=== PATIENT | female | born 1945 | race Caucasian/White ===

== ENCOUNTER 2022-04-03 08:54 | Day surgery (SDC) | payer MEDICARE, MEDICAID, SELFPAY ==
[2022-03-23 15:10] VITALS: BMI 23.8
--- NOTE | 2022-03-30 08:21 | MHC.SHP ---
Pre-Procedural Eval Section A Date of Service: 03/30/22 The patient is an INPATIENT: No Changes since office visit: No Cold of Flu in the past 2 weeks, No New Medical Problems, No Changes in Medication and No Patient answered all questions The History & Physical has been completed within 30 days and I have reviewed it.: Yes Section B Chief Complaint: cataract Allergies: Allergies Allergy/AdvReac Type Severity Reaction Status Date / Time No Known Allergies Allergy Verified 03/23/22 15:10 Plan Diagnosis/Plan: Unchanged I have reviewed the history and physical and performed a pertinent physical examination on my patient. No changes have occurred unless specified.
--- NOTE | 2022-03-30 11:10 | P.CONAN_ITS ---
Documented by User: Elzbieta Mendiola NP 03/30/22 11:10 HPI - Anesthesia Eval Consult details Narrative: 76yo F for Right Cataract Extraction IOL Insertion PCP cleared No previous cataract on record [facility] Past Medical History Medical History (Updated 03/23/22 @ 15:13 by Ana Luisa Alston RN) Anxiety Aortic valvular disease Cataract Chronic renal insufficiency COPD (chronic obstructive pulmonary disease) Elevated cholesterol History of amputation of toe History of blood transfusion HTN (hypertension) Low back pain On beta wilber at home PVD (peripheral vascular disease) Seasonal allergies Surgical History Surgical History (Updated 03/23/22 @ 14:40 by Ana Luisa Alston RN) Hx of aortic valve replacement Hx of colonoscopy Social History Social History Are you a primary clinical manager home care to a significant other at home: No Do you presently have visiting nurse or other home services: No Patient Tobacco Use Status: Current everyday Tobacco user Tobacco use type: Cigarette Cigarettes Per Day: 15 Use of substances other than those prescribed or required for medical reasons: No Have you been hit, kicked, punched, or otherwise hurt by someone within the past year? If so, by whom?: No Are you DNR?: No Advance Directives: No Advance Directives Information Provided: Yes Advance Directives on File: No Nutrition Risks: Dental problems Meds Allergies Allergy/AdvReac Type Severity Reaction Status Date / Time No Known Allergies Allergy Verified 03/23/22 15:10 Home Medications Medication Instructions Recorded Confirmed Last Taken Type albuterol sulfate 90 mcg/actuation 1 puff INHALATION QID PRN 03/23/22 03/23/22 Unknown History aerosol inhaler amoxicillin 875 mg tablet 1 tab PO BID 03/23/22 03/23/22 Unknown History atorvastatin 40 mg tablet 1 tab PO DAILY 03/23/22 03/23/22 Unknown History calcium carbonate 600 mg-vitamin 1 tab PO BID 03/23/22 03/23/22 Unknown History D3 10 mcg (400 unit) tablet diclofenac sodium 1 % topical gel g TOPICAL QID 03/23/22 Unknown History doxycycline hyclate 100 mg tablet 1 tab PO BID 03/23/22 03/23/22 Unknown History fluticasone furoate 200 1 puff PO DAILY 03/23/22 03/23/22 Unknown History mcg-vilanterol 25 mcg/dose inhalation powder (Breo Ellipta) fluticasone propionate 50 1 spray INTRANASAL BID 03/23/22 03/23/22 Unknown History mcg/actuation nasal spray,suspension folic acid 1 mg tablet 1 tab PO DAILY 03/23/22 03/23/22 Unknown History furosemide 20 mg tablet 1 tab PO DAILY 03/23/22 03/23/22 Unknown History lisinopril 20 mg tablet 1 tab PO DAILY 03/23/22 03/23/22 Unknown History metoprolol tartrate 25 mg tablet 1 tab PO DAILY 03/23/22 03/23/22 Unknown History silver sulfadiazine 1 % topical appl TOPICAL BID 03/23/22 03/23/22 Unknown History cream warfarin 2.5 mg tablet 1 tab PO DAILY 03/23/22 03/23/22 Unknown History Exam Exam Date and Time: March 30, 2022 1110 Height,Weight and Vital Signs: Height 5 ft 6 in Weight 67.132 kg Assessment and Plan Assessment Anesthesia Assessment: Chart Reviewed Documented by User: Keaton Ureña MD 04/03/22 10:05 [facility] Past Medical History Medical History (Updated 03/23/22 @ 15:13 by Ana Luisa Alston RN) Anxiety Aortic valvular disease Cataract Chronic renal insufficiency COPD (chronic obstructive pulmonary disease) Elevated cholesterol History of amputation of toe History of blood transfusion HTN (hypertension) Low back pain On beta wilber at home PVD (peripheral vascular disease) Seasonal allergies Family History Family history of problems with anesthesia: No Surgical History Surgical History (Updated 03/23/22 @ 14:40 by Ana Luisa Alston RN) Hx of aortic valve replacement Hx of colonoscopy History of Problems with Anesthesia: No Social History Social History Are you a primary clinical manager home care to a significant other at home: No Do you presently have visiting nurse or other home services: No Patient Tobacco Use Status: Current everyday Tobacco user Tobacco use type: Cigarette Cigarettes Per Day: 15 Use of substances other than those prescribed or required for medical reasons: No Have you been hit, kicked, punched, or otherwise hurt by someone within the past year? If so, by whom?: No Are you DNR?: No Advance Directives: No Advance Directives Information Provided: Yes Advance Directives on File: No Nutrition Risks: Dental problems Meds Allergies Allergy/AdvReac Type Severity Reaction Status Date / Time No Known Allergies Allergy Verified 03/23/22 15:10 Home Medications Medication Instructions Recorded Confirmed Last Taken Type albuterol sulfate 90 mcg/actuation 1 puff INHALATION QID PRN 03/23/22 03/23/22 Unknown History aerosol inhaler amoxicillin 875 mg tablet 1 tab PO BID 03/23/22 03/23/22 Unknown History atorvastatin 40 mg tablet 1 tab PO DAILY 03/23/22 03/23/22 Unknown History calcium carbonate 600 mg-vitamin 1 tab PO BID 03/23/22 03/23/22 Unknown History D3 10 mcg (400 unit) tablet diclofenac sodium 1 % topical gel g TOPICAL QID 03/23/22 Unknown History doxycycline hyclate 100 mg tablet 1 tab PO BID 03/23/22 03/23/22 Unknown History fluticasone furoate 200 1 puff PO DAILY 03/23/22 03/23/22 Unknown History mcg-vilanterol 25 mcg/dose inhalation powder (Breo Ellipta) fluticasone propionate 50 1 spray INTRANASAL BID 03/23/22 03/23/22 Unknown History mcg/actuation nasal spray,suspension folic acid 1 mg tablet 1 tab PO DAILY 03/23/22 03/23/22 Unknown History furosemide 20 mg tablet 1 tab PO DAILY 03/23/22 03/23/22 Unknown History lisinopril 20 mg tablet 1 tab PO DAILY 03/23/22 03/23/22 Unknown History metoprolol tartrate 25 mg tablet 1 tab PO DAILY 03/23/22 03/23/22 Unknown History silver sulfadiazine 1 % topical appl TOPICAL BID 03/23/22 03/23/22 Unknown History cream warfarin 2.5 mg tablet 1 tab PO DAILY 03/23/22 03/23/22 Unknown History Exam Airway Mallampati Class: II TM Dist: >3cm Neck ROM: Full Loose/Missing/Broken Teeth: Yes (no upper teeth, 2 lower teeth poor dentition and not loose as per patient) Heart: [id number] Lungs: cta b/l Assessment and Plan Assessment Anesthesia Assessment: Anesthesia Plan Discussed Final Anesthetic Review Family History of Problems with Anesthesia: No History of Problems with Anesthesia: No NPO: Yes ASA Class: III Final Preanesthetic Review: No Changes in Pt Med Stat, Meds/Allgs Chart Reviewed, Consent Obtained/Reviewed and Anes Risks/Benef Reviewed Patient Risk: Intermediate Procedure Risk: Low Assessment/Block/Sedation in SS: Assess/Block/Sedation-SS Anesthetic Plan Anesthetic Plan: MAC: and Agree w/ Assess. and Plan Disposition: Standard PACU
[2022-04-03 09:51] VITALS: BP 103/45; PULSE 63; RESP 16; TEMP 36.6; O2SAT 98
[2022-04-03] MEDS: Tetracaine HCl/PF 0.5% Oph Sol 4 ML DROPS 1 DROP EYE-RIGHT (10:00)
[2022-04-03] MEDS: Lactated Ringers 500 ML 50 ML IV (10:11)
[2022-04-03] MEDS: Tropicamide 1 % Ophth Sol 3 ML BTL 1 DROP EYE-RIGHT ×3 (10:12→10:22)
[2022-04-03] MEDS: Phenylephrine HCL 2.5% Oph SoL 2 ML BOTTLE 1 DROP EYE-RIGHT ×3 (10:15→10:24)
--- NOTE | 2022-04-03 10:57 | HO.PNOPHT ---
Ophthalmology Procedure Procedure Date of Service: 04/03/22 Ophthalmology Viscoelastic: Lukas Salast Dual Pack Pro Ophthalmology Lenses: TECBOWEN [id number] (21) Procedure Notes: PREOPERATIVE DIAGNOSIS: Decreased visual acuity right eye secondary to cataract POSTOPERATIVE DIAGNOSIS: Same PROCEDURE: Right cataract extraction with intraocular lens insertion SURGEON: Shivam Pinto M.D. ANESTHESIA: Topical/MAC ESTIMATED BLOOD LOSS: None COMPLICATIONS: None After obtaining informed consent, the patient was brought to the operating room suite and placed in the supine position. After adequate sedation per anesthesia, topical drops of Tetracaine were given to the right eye. The eye was then prepped and draped in the usual sterile fashion. The operating room microscope was then positioned over the operative eye and a lid speculum placed. A paracentesis was created. Viscoelastic was then instilled into the anterior chamber. A three plane incision was then created temporally, utilizing a 2.85 mm keratome. Capsulotomy forceps were then utilized to create a circular tear capsulotomy. Hydrodissection and hydrodelineation were carried out until adequate mobilization of the nucleus occurred. Phacoemulsification was then utilized to remove the dense central nucleus followed by removal of the cortical material utilizing the automated aspiration irrigation unit. Viscoelastic was instilled into the posterior capsular bag followed by placement of a posterior chamber intraocular lens without difficulty. The residual Viscoelastic was then removed utilizing the automated IA machine. The wound was checked and found to be watertight. The patient tolerated the procedure well and the lid speculum was removed. Intracameral injection of Vigamox 0.1 mL followed by a subtenon injection of Kenalog-40 0.2 mL were administered. The patient will be seen in the a.m.
[2022-04-03 11:27] VITALS: BP 98/49; PULSE 67; RESP 16; TEMP 36.2; O2SAT 98
== END 2022-04-03 11:38 | disposition home or self-care (01) ==
PROVIDERS: PCP Nurse Practitioner Family; Visit Provider Ophthalmology
PROC: (CPT 66985; principal; 2022-04-03 11:20)
DX: H25.11 Age-related nuclear cataract, right eye (principal); H54.7 Unspecified visual loss; J44.9 Chronic obstructive pulmonary disease, unspecified; I13.0 Hypertensive heart and chronic kidney disease with heart failure and stage 1 through stage 4 chronic kidney disease, or unspecified chronic kidney disease; N18.9 Chronic kidney disease, unspecified; I50.9 Heart failure, unspecified; I25.10 Atherosclerotic heart disease of native coronary artery without angina pectoris; Z95.1 Presence of aortocoronary bypass graft; Z95.2 Presence of prosthetic heart valve; I73.9 Peripheral vascular disease, unspecified; Z89.421 Acquired absence of other right toe(s); Z79.51 Long term (current) use of inhaled steroids; Z79.01 Long term (current) use of anticoagulants; F17.210 Nicotine dependence, cigarettes, uncomplicated; Z79.899 Other long term (current) drug therapy
CPT/HCPCS: 66984; J2250; J3010; J3300; V2632

== ENCOUNTER 2022-04-17 06:51 | Day surgery (SDC) | payer MEDICARE, MEDICAID, SELFPAY ==
[2022-03-23 15:13] VITALS: BMI 23.8
--- NOTE | 2022-04-13 09:57 | MHC.SHP ---
Pre-Procedural Eval Section A Date of Service: 04/13/22 The patient is an INPATIENT: No Changes since office visit: No Cold of Flu in the past 2 weeks, No New Medical Problems, No Changes in Medication and No Patient answered all questions The History & Physical has been completed within 30 days and I have reviewed it.: Yes Section B Chief Complaint: cataract Allergies: Allergies Allergy/AdvReac Type Severity Reaction Status Date / Time No Known Allergies Allergy Verified 03/23/22 15:10 Plan Diagnosis/Plan: Unchanged I have reviewed the history and physical and performed a pertinent physical examination on my patient. No changes have occurred unless specified.
--- NOTE | 2022-04-14 11:16 | P.CONAN_ITS ---
Documented by User: Elzbieta Mendiola NP 04/14/22 11:17 HPI - Anesthesia Eval Consult details Narrative: 76yo F for Left Left Cataract Extraction IOL Insertion PCP cleared Right eye 04/03/2022 with MAC: Fent 50, Midaz 1 PMFSH Past Medical History Medical History (Updated 03/23/22 @ 15:13 by Ana Luisa Alston, LESLY) Anxiety Aortic valvular disease Cataract Chronic renal insufficiency COPD (chronic obstructive pulmonary disease) Elevated cholesterol History of amputation of toe History of blood transfusion HTN (hypertension) Low back pain On beta wilber at home PVD (peripheral vascular disease) Seasonal allergies Family History Family history of problems with anesthesia: No Surgical History Surgical History (Updated 03/23/22 @ 14:40 by Ana Luisa Alston, LESLY) Hx of aortic valve replacement Hx of colonoscopy History of Problems with Anesthesia: No Social History Social History Are you a primary urgent care physician assistant to a significant other at home: No Do you presently have visiting nurse or other home services: No Patient Tobacco Use Status: Current everyday Tobacco user Tobacco use type: Cigarette Cigarettes Per Day: 15 Use of substances other than those prescribed or required for medical reasons: No Have you been hit, kicked, punched, or otherwise hurt by someone within the past year? If so, by whom?: No Are you DNR?: No Advance Directives: No Advance Directives Information Provided: Yes Advance Directives on File: No Nutrition Risks: Dental problems Meds Allergies Allergy/AdvReac Type Severity Reaction Status Date / Time No Known Allergies Allergy Verified 03/23/22 15:10 Home Medications Medication Instructions Recorded Confirmed Last Taken Type albuterol sulfate 90 mcg/actuation 1 puff inhalation QID PRN wheezing 03/23/22 03/23/22 Unknown History aerosol inhaler amoxicillin 875 mg tablet 1 tab PO BID 03/23/22 03/23/22 Unknown History atorvastatin 40 mg tablet 1 tab PO DAILY 03/23/22 03/23/22 Unknown History calcium carbonate 600 mg-vitamin 1 tab PO BID 03/23/22 03/23/22 Unknown History D3 10 mcg (400 unit) tablet diclofenac sodium 1 % topical gel g topical QID 03/23/22 Unknown History doxycycline hyclate 100 mg tablet 1 tab PO BID 03/23/22 03/23/22 Unknown History fluticasone furoate 200 1 puff PO DAILY 03/23/22 03/23/22 Unknown History mcg-vilanterol 25 mcg/dose inhalation powder (Breo Ellipta) fluticasone propionate 50 1 spray intranasal BID 03/23/22 03/23/22 Unknown History mcg/actuation nasal spray,suspension folic acid 1 mg tablet 1 tab PO DAILY 03/23/22 03/23/22 Unknown History furosemide 20 mg tablet 1 tab PO DAILY 03/23/22 03/23/22 Unknown History lisinopril 20 mg tablet 1 tab PO DAILY 03/23/22 03/23/22 Unknown History metoprolol tartrate 25 mg tablet 1 tab PO DAILY 03/23/22 03/23/22 04/17/22 History silver sulfadiazine 1 % topical appl topical BID 03/23/22 03/23/22 Unknown History cream warfarin 2.5 mg tablet 1 tab PO DAILY 03/23/22 03/23/22 Unknown History Exam Exam Date and Time: April 14, 2022 1116 Height,Weight and Vital Signs: Height 5 ft 6 in Weight 67.132 kg Assessment and Plan Assessment Anesthesia Assessment: Chart Reviewed Final Anesthetic Review Family History of Problems with Anesthesia: No History of Problems with Anesthesia: No Documented by User: Marly Hill MD 04/17/22 08:37 [facility] Past Medical History Medical History (Updated 03/23/22 @ 15:13 by Ana Luisa Alston RN) Anxiety Aortic valvular disease Cataract Chronic renal insufficiency COPD (chronic obstructive pulmonary disease) Elevated cholesterol History of amputation of toe History of blood transfusion HTN (hypertension) Low back pain On beta wilber at home PVD (peripheral vascular disease) Seasonal allergies Surgical History Surgical History (Updated 03/23/22 @ 14:40 by Ana Luisa Alston RN) Hx of aortic valve replacement Hx of colonoscopy Social History Social History Are you a primary urgent care physician assistant to a significant other at home: No Do you presently have visiting nurse or other home services: No Patient Tobacco Use Status: Current everyday Tobacco user Tobacco use type: Cigarette Cigarettes Per Day: 15 Use of substances other than those prescribed or required for medical reasons: No Have you been hit, kicked, punched, or otherwise hurt by someone within the past year? If so, by whom?: No Are you DNR?: No Advance Directives: No Advance Directives Information Provided: Yes Advance Directives on File: No Nutrition Risks: Dental problems Meds Allergies Allergy/AdvReac Type Severity Reaction Status Date / Time No Known Allergies Allergy Verified 03/23/22 15:10 Home Medications Medication Instructions Recorded Confirmed Last Taken Type albuterol sulfate 90 mcg/actuation 1 puff inhalation QID PRN wheezing 03/23/22 03/23/22 Unknown History aerosol inhaler amoxicillin 875 mg tablet 1 tab PO BID 03/23/22 03/23/22 Unknown History atorvastatin 40 mg tablet 1 tab PO DAILY 03/23/22 03/23/22 Unknown History calcium carbonate 600 mg-vitamin 1 tab PO BID 03/23/22 03/23/22 Unknown History D3 10 mcg (400 unit) tablet diclofenac sodium 1 % topical gel g topical QID 03/23/22 Unknown History doxycycline hyclate 100 mg tablet 1 tab PO BID 03/23/22 03/23/22 Unknown History fluticasone furoate 200 1 puff PO DAILY 03/23/22 03/23/22 Unknown History mcg-vilanterol 25 mcg/dose inhalation powder (Breo Ellipta) fluticasone propionate 50 1 spray intranasal BID 03/23/22 03/23/22 Unknown His tory mcg/actuation nasal spray,suspension folic acid 1 mg tablet 1 tab PO DAILY 03/23/22 03/23/22 Unknown History furosemide 20 mg tablet 1 tab PO DAILY 03/23/22 03/23/22 Unknown History lisinopril 20 mg tablet 1 tab PO DAILY 03/23/22 03/23/22 Unknown History metoprolol tartrate 25 mg tablet 1 tab PO DAILY 03/23/22 03/23/22 04/17/22 History silver sulfadiazine 1 % topical appl topical BID 03/23/22 03/23/22 Unknown History cream warfarin 2.5 mg tablet 1 tab PO DAILY 03/23/22 03/23/22 Unknown History Exam Airway Mallampati Class: II TM Dist: >3cm Neck ROM: Full Assessment and Plan Assessment Anesthesia Assessment: Anesthesia Plan Discussed Final Anesthetic Review NPO: Yes ASA Class: III Final Preanesthetic Review: No Changes in Pt Med Stat, Meds/Allgs Chart Reviewed, Consent Obtained/Reviewed and Anes Risks/Benef Reviewed Patient Risk: Intermediate Procedure Risk: Low Anesthetic Plan Anesthetic Plan: MAC: Disposition: Standard PACU
[2022-04-17 07:59] VITALS: BP 99/47; PULSE 67; RESP 18; TEMP 36.7; O2SAT 99
[2022-04-17] MEDS: Tetracaine HCl/PF 0.5% Oph Sol 4 ML DROPS 1 DROP EYE-LEFT (08:03)
[2022-04-17] MEDS: Tropicamide 1 % Ophth Sol 3 ML BTL 1 DROP EYE-LEFT ×3 (08:04→08:09)
[2022-04-17] MEDS: Phenylephrine HCL 2.5% Oph SoL 2 ML BOTTLE 1 DROP EYE-LEFT ×3 (08:06→08:12)
[2022-04-17] MEDS: Lactated Ringers 500 ML 50 ML IV (08:13)
--- NOTE | 2022-04-17 09:35 | HO.PNOPHT ---
Ophthalmology Procedure Procedure Date of Service: 04/17/22 Ophthalmology Viscoelastic: Healon Duet Dual Pack Pro Ophthalmology Lenses: TECBOWEN [id number] (21) Procedure Notes: PREOPERATIVE DIAGNOSIS: Decreased visual acuity left eye secondary to cataract POSTOPERATIVE DIAGNOSIS: Same PROCEDURE: Left cataract extraction with intraocular lens insertion SURGEON: Shivam Pinto M.D. ANESTHESIA: Topical/MAC ESTIMATED BLOOD LOSS: None COMPLICATIONS: None After obtaining informed consent, the patient was brought to the operation room suite and placed in the supine position. After adequate sedation per anesthesia, topical drops of Tetracaine were given to the left eye. The eye was then prepped and draped in the usual sterile fashion. The operating room microscope was then positioned over the operative eye and a lid speculum placed. A paracentesis was created. Viscoelastic was then instilled into the anterior chamber. A three plane incision was then created temporally, utilizing a 2.85 mm keratome. Capsulotomy forceps were then utilized to create a circular tear capsulotomy. Hydrodissection and hydrodelineation were carried out until adequate mobilization of the nucleus occurred. Phacoemulsification was then utilized to remove the dense central nucleus followed by removal of the cortical material utilizing the automated aspiration irrigation unit. Viscoat elastic was instilled into the posterior capsular bag followed by placement of a posterior chamber intraocular lens without difficulty. The residual Viscoat elastic was then removed utilizing the automated IA machine. The wound was check and found to be watertight. The patient tolerated the procedure well and the lid speculum was removed. Intracameral injection of Vigamox 0.1 mL followed by a subtenon injection of Kenalog-40 0.2 mL were administered. The patient will be seen in the a.m.
[2022-04-17 10:00] VITALS: BP 114/60; PULSE 70; RESP 15; TEMP 36.4; O2SAT 95
== END 2022-04-17 10:07 | disposition home or self-care (01) ==
PROVIDERS: PCP Nurse Practitioner Family; Visit Provider Ophthalmology
PROC: (CPT 66985; principal; 2022-04-17 09:20)
DX: H25.12 Age-related nuclear cataract, left eye (principal); H54.7 Unspecified visual loss; J44.9 Chronic obstructive pulmonary disease, unspecified; I12.9 Hypertensive chronic kidney disease with stage 1 through stage 4 chronic kidney disease, or unspecified chronic kidney disease; N18.9 Chronic kidney disease, unspecified; Z79.01 Long term (current) use of anticoagulants; Z79.51 Long term (current) use of inhaled steroids; Z79.899 Other long term (current) drug therapy; F17.210 Nicotine dependence, cigarettes, uncomplicated
CPT/HCPCS: 66984; J2250; J3010; J3300; V2632